=== PATIENT | female | born 1990 | race Hispanic/Latino ===

== ENCOUNTER 2019-02-05 01:08 | Emergency (ER) | payer OTHER ==
[2019-02-05] MEDS ORDERED: IBUPROFEN 600 MG TABLET ONE (01:31)
[2019-02-05] MEDS ORDERED: FAMOTIDINE 20MG TAB 20 MG TAB ONE (01:31)
[2019-02-05] MEDS ORDERED: ACETAMINOPHEN EXTRA STRENGTH 500 MG TABLET ONE (01:32)
[2019-02-05] MEDS ORDERED: CYCLOBENZAPRINE HCL 10 MG TABLET ONE (01:32)
== END 2019-02-05 02:23 | disposition home or self-care (01) ==
LOC: EDH 01:08
DX: M62.830 Muscle spasm of back (principal); R07.89 Other chest pain; R42 Dizziness and giddiness; R51 Headache; R00.2 Palpitations; Z87.891 Personal history of nicotine dependence
CPT/HCPCS: 71046; 93005